=== PATIENT | female | born 1990 | race Caucasian/White ===

== ENCOUNTER 2017-07-18 13:37 | Inpatient (IN) | payer BC ==
[~2017-07-18] VITALS: Ht 162.6 cm; Wt 108.9 kg
[2017-07-18] MEDS ORDERED: ACETAMINOPHEN 650 MG SUPP.RECT RC ONE (14:00)
[2017-07-18] MEDS ORDERED: LR 1,000 ML IV ONE ×2 (15:20→17:18)
[2017-07-18] MEDS ORDERED: CEFAZOLIN 2 GM IVPB PREMIX 50 ML IV ONE (15:30)
[2017-07-18 16:26] LABS: BILIRUBIN,URINE NEGATIVE (NEGATIVE); BLOOD, URINE 1+ (NEGATIVE); CLARITY/URINE CLEAR (CLEAR); COLOR,URINE YELLOW (YELLOW); GLUCOSE,URINE NEGATIVE (NEGATIVE); KETONES,URINE NEGATIVE (NEGATIVE); LEUKOCYTE ESTERASE ,URINE NEGATIVE (NEGATIVE); NITRITE, URINE NEGATIVE (NEGATIVE); PH,URINE 5.5 (5.0-8.0); PROTEIN URINE NEGATIVE (NEGATIVE); UROBILINOGEN,URINE 0.2 (0.2-1.0)
[2017-07-18 16:33] LABS: BASOPHILS % (AUTO) 0.3 % (0.0-2.0); EOSINOPHILS # (AUTO) 0.3 K/uL (0.0-0.4); EOSINOPHILS % (AUTO) 2.8 % (0.0-4.0); HEMATOCRIT 35.8 % (36-48); HEMOGLOBIN 11.7 g/dL (12.0-16.0); LYMPHOCYTES # (AUTO) 1.6 K/uL (1.0-5.5); LYMPHOCYTES % (AUTO) 16.9 % (20.5-51.5); MEAN CORPUSCULAR HEMOGLOBIN 29 pg (27-31); MEAN CORPUSCULAR HGB CONC 33 % (32-36); MEAN CORPUSCULAR VOLUME 89 fL (79.0-98.0); MONOCYTES # (AUTO) 0.9 K/uL (0.0-1.0); MONOCYTES % (AUTO) 9.4 % (1.7-9.3); NEUTROPHILS # (AUTO) 6.9 K/uL (1.8-7.7); NEUTROPHILS % (AUTO) 70.6 % (40.0-70.0); PLATELET COUNT (AUTO) 210 K/uL (130-430); RED BLOOD CELL COUNT(AUTO) 4.01 MIL/uL (4.2-6.2); RED CELL DISTRIBUTION WIDTH 12.8 % (9.0-15.0); WHITE BLOOD COUNT (AUTO) 9.7 K/uL (4.8-10.8)
[2017-07-18 16:36] LABS: BACTERIA,URINE FEW /HPF (None Seen); MUCUS,URINE None Seen /LPF (None Seen); RBC,URINE NONE SEEN /HPF (0-3); WBC,URINE 0-3 /HPF (0-3)
[2017-07-18] MEDS ORDERED: ePHEDrine sulfate 50 MG/ML VIAL IVP PRN (17:30)
[2017-07-18] MEDS ORDERED: KETOROLAC TROMETHAMINE 30 MG VIAL IM PRN (17:30)
[2017-07-18] MEDS ORDERED: fentaNYL CITRATE/PF 100 MCG/2 ML AMP IVP PRN (17:30)
[2017-07-18] MEDS ORDERED: NALBUPHINE HCL 10 MG/ML AMP IVP PRN (17:30)
[2017-07-18] MEDS ORDERED: NALOXONE HCL 0.4 MG/ML AMP (NARCAN) IVP PRN (17:30)
[2017-07-18] MEDS ORDERED: DIPHENHYDRAMINE INJ 50 MG/ML VIAL IVP PRN (17:30)
[2017-07-18] MEDS ORDERED: ONDANSETRON HCL 4 MG/2 ML VIAL IVP PRN ×2 (17:30)
[2017-07-18] MEDS ORDERED: LR 1,000 ML IV SCH (17:34)
[2017-07-18] MEDS ORDERED: OXYTOCIN/NORMAL SALINE 1,000 ML IV ONE (17:34)
[2017-07-18 17:35] VITALS: BP_SYST 117
[2017-07-18] MEDS ORDERED: ANUSOL 1 EA SUPP.RECT (PREPARATION H) RC PRN (17:45)
[2017-07-18] MEDS ORDERED: SENNOSIDES/DOCUSATE SODIUM 1 TAB TABLET(SENOKOT-S) PO PRN (17:45)
[2017-07-18] MEDS ORDERED: MEASLES,MUMPS&RUBELLA VACC/PF 12500 UNIT/0.5 ML VIAL SUBQ PRN (17:45)
[2017-07-18] MEDS ORDERED: LANOLIN 7 GM OINT. TP PRN (17:45)
[2017-07-18] MEDS ORDERED: RHO(D) IMMUNE GLOBULIN/MALTOSE 1500 UNITS/1.3 ML (WINHRO) IM PRN (17:45)
[2017-07-18] MEDS ORDERED: HYDROcodone/ACETAMIN 5-325 MG TAB (NORCO/ VICODIN) PO PRN (17:45)
[2017-07-18] MEDS ORDERED: TEMAZEPAM 15 MG CAPSULE PO PRN (21:00)
[2017-07-19] MEDS: CEFAZOLIN 1 GM IVPB PREMIX 50 ML IV SCH ×3 (00:24→12:00)
[2017-07-19] MEDS ORDERED: KETOROLAC TROMETHAMINE 30 MG VIAL IVP SCH (06:00)
[2017-07-19] MEDS ORDERED: KETOROLAC TROMETHAMINE 30 MG VIAL IVP PRN (06:00)
[2017-07-19] MEDS ORDERED: KETOROLAC TROMETHAMINE 30 MG VIAL ONE (06:04)
[2017-07-19 06:55] LABS: BASOPHILS % (AUTO) 0.1 % (0.0-2.0); EOSINOPHILS % (AUTO) 0.2 % (0.0-4.0); HEMOGLOBIN 9.2 g/dL (12.0-16.0); LYMPHOCYTES # (AUTO) 1.7 K/uL (1.0-5.5); LYMPHOCYTES % (AUTO) 15.1 % (20.5-51.5); MEAN CORPUSCULAR HEMOGLOBIN 30 pg (27-31); MEAN CORPUSCULAR HGB CONC 33 % (32-36); MEAN CORPUSCULAR VOLUME 90 fL (79.0-98.0); MONOCYTES # (AUTO) 0.9 K/uL (0.0-1.0); MONOCYTES % (AUTO) 7.8 % (1.7-9.3); NEUTROPHILS % (AUTO) 76.8 % (40.0-70.0); PLATELET COUNT (AUTO) 179 K/uL (130-430); RED BLOOD CELL COUNT(AUTO) 3.13 MIL/uL (4.2-6.2); RED CELL DISTRIBUTION WIDTH 12.9 % (9.0-15.0); WHITE BLOOD COUNT (AUTO) 11.6 K/uL (4.8-10.8)
[2017-07-19] MEDS: OXYCODONE/ACETAMINOPHEN 5-325 TABLET PO PRN (19:46)
[2017-07-20] MEDS: IBUPROFEN 600 MG TABLET PO SCH ×3 (00:04→12:00)
[2017-07-20] MEDS: OXYCODONE/ACETAMINOPHEN 5-325 TABLET PO PRN ×5 (03:09→21:49)
[2017-07-20] MEDS: DOCUSATE SODIUM 100 MG CAPSULE PO PRN ×2 (05:54→20:50)
[2017-07-20] MEDS: SIMETHICONE 80 MG TAB.CHEW PO PRN (08:22)
[2017-07-20] MEDS ORDERED: BISACODYL 10 MG/SUPPOSITORY RC ONE (19:15)
[2017-07-20] MEDS: BISACODYL 10 MG/SUPPOSITORY RC PRN (20:50)
[2017-07-21] MEDS: IBUPROFEN 600 MG TABLET PO SCH ×3 (06:02→12:12)
[2017-07-21] MEDS: DOCUSATE SODIUM 100 MG CAPSULE PO PRN (08:50)
[2017-07-21] MEDS: OXYCODONE/ACETAMINOPHEN 5-325 TABLET PO PRN ×2 (08:50→12:13)
[2017-07-21] MEDS: BISACODYL 10 MG/SUPPOSITORY RC PRN (11:11)
[2017-07-21] MEDS: SIMETHICONE 80 MG TAB.CHEW PO PRN (14:32)
== END 2017-07-21 16:05 | disposition home or self-care (01) | DRG 766 ==
LOC: SPU 13:37
PROVIDERS: ADMIT Specialist; ATTEND Specialist
PROC: 3E0134Z Introduction of Serum, Toxoid and Vaccine into Subcutaneous Tissue, Percutaneous Approach (ICD-10-PCS; 2017-07-18)
PROC: 10D00Z1 Extraction of Products of Conception, Low, Open Approach (ICD-10-PCS; principal; 2017-07-18 15:15)
DX: O42.12 Full-term premature rupture of membranes, onset of labor more than 24 hours following rupture (principal); O33.9 Maternal care for disproportion, unspecified; O62.2 Other uterine inertia; Z3A.40 40 weeks gestation of pregnancy; Z37.0 Single live birth; Z23 Encounter for immunization
CPT/HCPCS: 36415; 81000-TC; 85025; 86592; 86886; 86900; 86901; 94760; J0690; J1885; J2590; J7120